=== PATIENT | male | born 1980 | race Caucasian/White ===

== ENCOUNTER 2025-03-26 01:00 | Emergency (ER) | payer OTHER ==
[2025-03-26] MEDS: Dexamethasone Sod Phos Preservative Free 10 MG/ML Vial IM ONE (01:42)
== END 2025-03-26 02:33 | disposition home or self-care (01) ==
LOC: MW.ED 01:00
DX: M10.9 Gout, unspecified (principal)
CPT/HCPCS: 73610-26-LT; 73610-LT; 96372; 99283; A9270-GY; J1100